=== PATIENT | male | born 1990 | race Caucasian/White ===

== ENCOUNTER 2021-05-15 11:35 | Emergency (ER) | payer OTHER ==
[2021-05-15 13:18] LABS: HEMOGLOBIN 15.9 gm/dl (14.0-17.5); RED BLOOD COUNT 5.49 M/UL (4.20-5.50); WHITE BLOOD COUNT 12.3 K/UL (4.5-11.0)
[2021-05-15 13:44] LABS: BUN/CREATININE RATIO 8 (0-10)
[2021-05-15] MEDS ORDERED: CLINDAMYCIN HC150 MG PO (16:54)
[2021-05-15] MEDS ORDERED: NAPROSYN500 MG PO (16:54)
== END 2021-05-15 17:01 | disposition home or self-care (01) ==
LOC: ER1 11:35
PROVIDERS: Physician Assistant
DX: K02.9 Dental caries, unspecified (principal); L03.211 Cellulitis of face
CPT/HCPCS: 70487; 80053; 85025; 96374; 96375; 99283; J0295; J1885; Q9967